=== PATIENT | male | born 1980 | race Hispanic/Latino ===

== ENCOUNTER 2021-03-24 15:02 | Emergency (ER) | payer SELFPAY ==
[~2021-03-24] VITALS: Ht 167.6 cm; Wt 76.4 kg
[2021-03-24] MEDS ORDERED: IBUPROFEN600 MG PO (18:26)
[2021-03-24] MEDS ORDERED: FLEXERIL5 M1 PO (18:26)
[2021-03-24 18:35] VITALS: BP 129/74
== END 2021-03-24 18:35 | disposition home or self-care (01) | DRG 552 ==
LOC: ED 15:02
DX: S16.1XXA Strain of muscle, fascia and tendon at neck level, initial encounter (principal); S40.011A Contusion of right shoulder, initial encounter; W20.8XXA Other cause of strike by thrown, projected or falling object, initial encounter; Y93.89 Activity, other specified; Y92.89 Other specified places as the place of occurrence of the external cause; Y99.0 Civilian activity done for income or pay